=== PATIENT | female | born 1985 | race Two or more races ===

== ENCOUNTER 2019-08-18 03:52 | Emergency (ER) | payer OTHER ==
[~2019-08-18] VITALS: Ht 167.6 cm; Wt 97.5 kg
[~2019-08-18 03:52] MED LIST: CIPRO500 MG
[2019-08-18] MEDS ORDERED: PRENATA CHEWAB1 EACH (03:58)
== END 2019-08-18 08:15 | disposition home or self-care (01) ==
LOC: ER 03:52
DX: O20.8 Other hemorrhage in early pregnancy (principal)

== ENCOUNTER 2020-01-23 14:53 | Inpatient (IN) | payer OTHER ==
[~2020-01-23] VITALS: Ht 167.6 cm; Wt 3.2 kg
[~2020-01-23 14:53] MED LIST changes: +PRENATA CHEWAB1 EACH
== END 2020-02-24 12:28 | DRG 788 ==
LOC: OB/GYN 02-19 14:51 → LDR 02-22 06:08 → SURG-SUITE 02-22 06:08 → LDR 02-22 06:10 → O/R 02-22 13:53 → SURG-SUITE 02-22 16:09
PROVIDERS: ADMIT Obstetrics & Gynecology; ATTEND Obstetrics & Gynecology
PROC: 0UB20ZZ Excision of Bilateral Ovaries, Open Approach (ICD-10-PCS; 2020-02-22)
PROC: 4A1HXCZ Monitoring of Products of Conception, Cardiac Rate, External Approach (ICD-10-PCS; 2020-02-22)
PROC: 3E033VJ Introduction of Other Hormone into Peripheral Vein, Percutaneous Approach (ICD-10-PCS; 2020-02-22)
PROC: 10D00Z1 Extraction of Products of Conception, Low, Open Approach (ICD-10-PCS; principal; 2020-02-22 12:00)
DX: O61.0 Failed medical induction of labor (principal); O62.1 Secondary uterine inertia; Z37.0 Single live birth; Z3A.40 40 weeks gestation of pregnancy; Z22.330 Carrier of Group B streptococcus; O34.83 Maternal care for other abnormalities of pelvic organs, third trimester; N83.292 Other ovarian cyst, left side; N83.291 Other ovarian cyst, right side

== ENCOUNTER 2020-02-14 14:27 | Outpatient (CLI) | payer OTHER | END 2020-02-14 15:40 | disposition home or self-care (01) | LOC: NST 14:27 | PROVIDERS: ATTEND Obstetrics & Gynecology | DX: Z34.83 Encounter for supervision of other normal pregnancy, third trimester (principal) ==

== ENCOUNTER 2020-02-20 09:36 | Outpatient (CLI) | payer OTHER | END 2020-02-20 13:06 | disposition home or self-care (01) | LOC: NST 09:36 | PROVIDERS: ATTEND Obstetrics & Gynecology Maternal & Fetal Medicine | DX: Z34.83 Encounter for supervision of other normal pregnancy, third trimester (principal) ==

== ENCOUNTER 2022-09-04 11:29 | Inpatient (IN) | payer OTHER ==
[~2022-09-04] VITALS: Ht 167.6 cm; Wt 110.2 kg
== END 2022-09-12 13:55 | disposition home or self-care (01) | DRG 788 ==
LOC: O/R 09-10 08:10 → OB/GYN 09-10 10:15
PROVIDERS: ADMIT Obstetrics & Gynecology; ATTEND Obstetrics & Gynecology
PROC: 4A1HXCZ Monitoring of Products of Conception, Cardiac Rate, External Approach (ICD-10-PCS; 2022-09-10)
PROC: 10D00Z1 Extraction of Products of Conception, Low, Open Approach (ICD-10-PCS; principal; 2022-09-10 12:30)
DX: O34.211 Maternal care for low transverse scar from previous cesarean delivery (principal); O99.824 Streptococcus B carrier state complicating childbirth; Z37.0 Single live birth; Z20.822 Contact with and (suspected) exposure to COVID-19; Z3A.39 39 weeks gestation of pregnancy